=== PATIENT | male | born 1975 | race Asian ===

== ENCOUNTER 2018-06-24 08:00 | Outpatient (CLI) | payer BC | END 2018-06-24 08:01 | disposition home or self-care (01) | LOC: BICMRI 08:00 | PROVIDERS: ATTEND Internal Medicine Rheumatology | DX: M06.4 Inflammatory polyarthropathy (principal); M79.641 Pain in right hand ==

== ENCOUNTER 2020-03-05 20:32 | Emergency (ER) | payer BC, OTHER ==
[2020-03-05 21:16] LABS: #Basophils 0.1 thou/uL (0.0-0.2); #Eosinphils 0.3 thou/uL (0.0-0.7); #Lymphocytes 3.4 thou/uL (1.20-3.40); #Monocytes 0.6 thou/uL (0.11-0.59); #Neutrophils 2.9 thou/uL (1.40-6.50); %Basophils 1.4 % (0.0-1.0); %Eosinophils 4.4 % (0.0-10.0); %Lymphocytes 47.1 % (21.0-51.0); %Monocytes 7.6 % (0.0-10.0); %Neutrophils 39.6 % (42.0-75.0); Mean Corpuscular HGB CONC 34.1 g/dL (32.0-36.0); Mean Corpuscular Hemoglobin 28.9 pg (27.0-31.0); Mean Corpuscular Volume 84.9 fL (78.0-98.0); Mean Platelet Volume 8.5 fL (7.4-10.4); Platelet Count 260 thou/uL (130-400); RBC Distribution Width 12.6 % (11.5-14.5); Red Blood Cell (RBC) Count 5.53 mill/uL (4.70-6.10); White Blood Cell (WBC) Count 7.2 thou/uL (4.8-10.8)
--- NOTE | 2020-03-05 21:20 | RAD ---
XR Chest 1 View Portable HISTORY: Dyspnea COMPARISON: 02/21/2020 FINDINGS: The heart size is normal. The lungs are well expanded without focal areas of consolidation, pneumothorax or pleural effusions. IMPRESSION: No radiographic evidence of acute cardiopulmonary process.
[2020-03-05] MEDS ORDERED: Ketorolac Tromethamine 30 MG/ML VIAL ONE (21:34)
[2020-03-05] MEDS ORDERED: Metoclopramide HCl 10 MG/2 ML VIAL ONE (21:34)
[2020-03-05] MEDS ORDERED: Dexamethasone 10 MG/ML VIAL ONE (21:34)
[2020-03-05 21:46] LABS: ALT (SGPT) 32 U/L (8-55); AST (SGOT) 21 U/L (5-34); Albumin 4.5 g/dL (3.5-5.0); Alkaline Phosphatase 74 U/L (40-110); Anion Gap 15 mmol/L (10-20); BUN (Urea Nitrogen) 11 mg/dL (8.9-20.6); Bilirubin, Total 0.4 mg/dL (0.2-1.2); CK (CPK) 120 U/L (30-200); Calc. Creatinine Clearance 0 mL/min (70-130); Calcium 9.4 mg/dL (7.8-10.44); Carbon Dioxide 20 mmol/L (22-29); Chloride 109 mmol/L (98-107); Estimated GFR-MDRD Greater than 90; Globulin 3.2 g/dL (2.4-3.5); Glucose 102 mg/dL (70-105); Lipase 96 U/L (8-78); Potassium 3.9 mmol/L (3.5-5.1); Protein, Total 7.7 g/dL (6.0-8.3); Sodium 140 mmol/L (136-145)
--- NOTE | 2020-03-05 21:56 | CT ---
CT BRAIN WITHOUT CONTRAST: HISTORY: Headache FINDINGS: No evidence of acute infarct, hemorrhage, midline shift or abnormal extra-axial fluid collections is seen. The ventricular size is appropriate and the basilar cisterns are patent. The bony calvarium is intact. The mastoid air cells are well aerated. There is mucosal disease in the paranasal sinuses. IMPRESSION: No CT evidence of acute intracranial process.
[2020-03-06 10:23] LABS: SARS-CoV-2 MS2 Positive; SARS-CoV-2 N Gene Negative; SARS-CoV-2 S Gene Negative; SARS-CoV-2 orf1ab Negative
== END 2020-03-05 22:28 | disposition home or self-care (01) ==
LOC: ERS 20:32
DX: R06.00 Dyspnea, unspecified (principal); Z20.828 Contact with and (suspected) exposure to other viral communicable diseases; I10 Essential (primary) hypertension; F90.9 Attention-deficit hyperactivity disorder, unspecified type; Z79.899 Other long term (current) drug therapy
CPT/HCPCS: 70450; 71045; 80053; 82550; 83690; 83880; 84484; 85025; 85379; 87635; 93005; 96361; 96374; 96375; J1100; J1885; J2765; U0003

== ENCOUNTER 2020-03-08 21:11 | Inpatient (IN) | payer BC, OTHER ==
[~2020-03-08 21:11] MED LIST: Iopamidol-370 76% 500 ML 1 ML ONE
[2020-03-08] MEDS ORDERED: Lorazepam 2 MG/ML VIAL ONE (22:14)
[2020-03-08] MEDS ORDERED: cefTRIAXone\\ROCEPHIN 1 GM VIAL ONE (22:17)
[2020-03-08] MEDS ORDERED: Azithromycin 500 MG VIAL ONE (22:17)
[2020-03-08 22:19] LABS: #Basophils 0.1 thou/uL (0.0-0.2); #Eosinphils 0.1 thou/uL (0.0-0.7); #Lymphocytes 2.4 thou/uL (1.20-3.40); #Monocytes 1.1 thou/uL (0.11-0.59); #Neutrophils 8.4 thou/uL (1.40-6.50); %Basophils 0.4 % (0.0-1.0); %Eosinophils 0.5 % (0.0-10.0); %Lymphocytes 20.3 % (21.0-51.0); %Monocytes 9.1 % (0.0-10.0); %Neutrophils 69.6 % (42.0-75.0); Hemoglobin 15.1 g/dL (14.0-18.0); Mean Corpuscular HGB CONC 32.1 g/dL (32.0-36.0); Mean Corpuscular Hemoglobin 27.3 pg (27.0-31.0); Mean Platelet Volume 8.5 fL (7.4-10.4); Platelet Count 276 thou/uL (130-400); RBC Distribution Width 12.8 % (11.5-14.5); Red Blood Cell (RBC) Count 5.54 mill/uL (4.70-6.10)
[2020-03-08 22:41] LABS: ALT (SGPT) 27 U/L (8-55); AST (SGOT) 13 U/L (5-34); Albumin 4.5 g/dL (3.5-5.0); Alkaline Phosphatase 54 U/L (40-110); Anion Gap 13 mmol/L (10-20); BUN (Urea Nitrogen) 17 mg/dL (8.9-20.6); Bilirubin, Total 0.5 mg/dL (0.2-1.2); CK (CPK) 85 U/L (30-200); Calc. Creatinine Clearance 0 mL/min (70-130); Carbon Dioxide 24 mmol/L (22-29); Chloride 106 mmol/L (98-107); Estimated GFR-MDRD Greater than 90; Glucose 139 mg/dL (70-105); Potassium 3.8 mmol/L (3.5-5.1); Protein, Total 7.5 g/dL (6.0-8.3); Sodium 139 mmol/L (136-145)
[2020-03-08] MEDS ORDERED: Aspirin 325 MG TAB ONE (23:18)
[2020-03-08] MEDS ORDERED: Nitroglycerin 2% Ointment 1 INCH/1 GM Packet ONE (23:18)
[2020-03-08 23:29] LABS: CKMB 1.1 ng/mL (0-6.6)
[2020-03-08 23:29] LABS: Amphetamine Not Detected (NotDetected); Barbiturates Screen Not Detected (NotDetected); Benzodiazepine Screen Not Detected (NotDetected); Cocaine Metabolite Screen Not Detected (NotDetected); Medtox Control Line Valid? VALID (VALID); Medtox Reader # READER 4; Methadone Not Detected (NotDetected); Methamphetamine Not Detected (NotDetected); Opiate Screen Not Detected (NotDetected); Oxycodone Screen Not Detected (NotDetected); Phencyclidine (PCP) Not Detected (NotDetected); THC/Cannabinoid Screen Not Detected (NotDetected); Tricyclic Screen Not Detected (NotDetected)
[2020-03-09] MEDS ORDERED: Acetaminophen 650 MG Suppository PR PRN (00:18)
[2020-03-09] MEDS ORDERED: Nitroglycerin 0.4 MG TAB (25 Tab Bottle) PO PRN (00:21)
--- NOTE | 2020-03-09 00:42 | PDOC.HHP ---
Hospitalist HPI - History of Present Illness Chest pain and SOB History of Present Illness: Patient presents complaining of progressively worsening shortness of breath for the last several days and more frequent episodes of "chest, neck and jaw spasming". Patient states the shortness of breath occurs with any exertion, including walking to the bathroom and has gotten worse. He reports having a coughing fit after the spasms he experience which initially occured 1-2 times a day and now occur 3-4 times a day. He describes feeling as if his chest muscles, neck muscles and jaw get tight and start to spasm. In order for him to be able to breathe he has to force himself to take a deep breath and hold it. Otherwise he feels the spasm recur if he breathes normally. After these episodes he experiences coughing fits that are dry. Denies any hemoptysis. This all began when he became unwell with a productive cough at the end of February. He was seen at an urgent care center and tested negative for COVID. His symptoms persisted prompting him to return to the ED 4 days ago and again had COVID testing which was negative. Known history of HTN but no known history of COPD or Asthma. No history of heart failure. Has never had an echo done. At present he feels well and is without any pain. ED Course: EKG done in NSR< HR 77. No ST changes or T wave abnormalities. Chest X ray unremarkable. Initial trop 0.113, CK 85. WCC 12, Hgb 15.1, Hct 47.1, Platelets 276. CMP unremarkable. He was started on IV antibiotics (Azithromycin) and Rocephin. Also given aspirin 325 mg PO. 1L of NS given and 1 inch nitro given as well. Hospitalist ROS - Review of Systems Constitutional: denies: fever, chills, sweats, weakness, malaise, other Eyes: denies: pain, vision change, conjunctivae inflammation, eyelid inflammation, redness, other ENT: denies: ear pain, ear discharge, nose pain, nose discharge, nose congestion , mouth pain, mouth swelling, throat pain, throat swelling, other Respiratory: reports: cough (clear sputum), SOB with excertion Cardiovascular: reports: chest pain (radiating to neck and jaw as well as left arm, described as spasms/tightness). denies: palpitations, orthopnea, paroxysmal noc. dyspnea, edema, light headedness, other Gastrointestinal: denies: nausea, vomiting, abdominal pain, diarrhea, constipation, melena, hematochezia, other Genitourinary: denies: dysuria, frequency, incontinence, hematuria, retention, other Musculoskeletal: reports: neck pain (spasms to anterior neck). denies: shoulder pain, arm pain, back pain, hand pain, leg pain, foot pain, other Skin: denies: rash, lesions, bryant, bruising, other Neurological: denies: weakness, numbness, incoordination, change in speech, confusion, seizures, other - Medication Medications: losartan-hydrochlorothiazide TABLET : Strength - 100 mg-25 mg : ORAL Patient Dose: 1 tab(s) Oral once a day. predniSONE 20 mg : Strength - TABLET : ORAL Patient Dose: 3 tab(s) Oral once a day. Hospitalist History - Past Medical History Source: patient Cardiac: reports: HTN Psych: reports: Other (ADHD) - Past Surgical History Past Surgical History: reports: no pertinent history - Family History Family History: reports: no pertinent history - Social History Smoking Status: Never smoker Alcohol: reports: Occassional Drugs: reports: none Living Situation: With Family Activity level: independent ambulation - Exam General Appearance: NAD Eye: PERRL, anicteric sclera ENT: normocephalic atraumatic, no oropharyngeal lesions, moist mucosa Neck: supple, no lymphadenopathy Heart: RRR, no murmur, no gallops, normal peripheral pulses Respiratory: CTAB, no wheezes, no rales, no ronchi, normal chest expansion, no tachypnea Gastrointestinal: soft, non-tender, non-distended, normal bowel sounds, no guarding, no rigidity Extremities: no cyanosis, no clubbing, no edema Skin: normal turgor, no rashes Neurological: cranial nerve grossly intact Musculoskeletal: normal tone, normal strength, no muscle wasting Psychiatric: normal affect, normal behavior, A&O x 3 Hospitalist Results - Labs Result Diagrams: 03/08/20 22:08 03/08/20 22:08 Lab results: WBC 12.0 thou/uL (4.8-10.8) H 03/08/20 22:08 Hgb 15.1 g/dL (14.0-18.0) 03/08/20 22:08 Hct 47.1 % (42.0-52.0) 03/08/20 22:08 MCV 85.0 fL (78.0-98.0) 03/08/20 22:08 Plt Count 276 thou/uL (130-400) 03/08/20 22:08 Neutrophils % 69.6 % (42.0-75.0) 03/08/20 22:08 Sodium 139 mmol/L (136-145) 03/08/20 22:08 Potassium 3.8 mmol/L (3.5-5.1) 03/08/20 22:08 Chloride 106 mmol/L (98-107) 03/08/20 22:08 Carbon Dioxide 24 mmol/L (22-29) 03/08/20 22:08 BUN 17 mg/dL (8.9-20.6) 03/08/20 22:08 Creatinine 0.87 mg/dL (0.7-1.3) 03/08/20 22:08 Glucose 139 mg/dL (70-105) H 03/08/20 22:08 Calcium 9.0 mg/dL (7.8-10.44) 03/08/20 22:08 Total Bilirubin 0.5 mg/dL (0.2-1.2) 03/08/20 22:08 AST 13 U/L (5-34) 03/08/20 22:08 ALT 27 U/L (8-55) 03/08/20 22:08 Alkaline Phosphatase 54 U/L (40-110) 03/08/20 22:08 Creatine Kinase 85 U/L (30-200) 03/08/20 22:08 CK-MB (CK-2) 1.1 ng/mL (0-6.6) 03/08/20 22:32 Troponin I 0.113 ng/mL (< 0.028) H 03/08/20 22:32 B-Natriuretic Peptide 28.1 pg/mL (0-100) 03/08/20 22:08 Serum Total Protein 7.5 g/dL (6.0-8.3) 03/08/20 22:08 Albumin 4.5 g/dL (3.5-5.0) 03/08/20 22:08 - Radiology Interpretation Chest x-ray Status: report reviewed by me CT scan - chest Status: pending Hospitalist H&P A/P - Problem (1) Chest tightness Code(s): R07.89 - OTHER CHEST PAIN Status: Acute (2) Shortness of breath on exertion Code(s): R06.02 - SHORTNESS OF BREATH Status: Acute (3) Cough Code(s): R05 - COUGH Status: Acute (4) Troponin level elevated Code(s): R79.89 - OTHER SPECIFIED ABNORMAL FINDINGS OF BLOOD CHEMISTRY Status : Acute (5) Hypertension Code(s): I10 - ESSENTIAL (PRIMARY) HYPERTENSION Status: Chronic Qualifiers: Hypertension type: essential hypertension Qualified Code(s): I10 - Essential (primary) hypertension (6) ADHD Status: Acute - Plan Plan: Cardiac monitoring Continue to trend troponin Echo ordered and Cardiology consult as per discussion with Dr. Rock. UDS pending. CTA ordered. No evidence of PE, per ED physician. Final report pending. NPO at midnight, pending cardiology assessment. Monitor BP. Resume home medications once verified. CODE STATUS FULL [employer]ROGATE DECISION MAKER: His , Zack Gomez.
[2020-03-09 01:17] VITALS: BMI 30.1
[2020-03-09] MEDS: Acetaminophen 325 MG TAB PO PRN (01:31)
[2020-03-09 02:02] LABS: Troponin I 0.149 ng/mL (< 0.028)
[2020-03-09 04:49] LABS: #Basophils 0.1 thou/uL (0.0-0.2); #Lymphocytes 3.4 thou/uL (1.20-3.40); #Monocytes 0.7 thou/uL (0.11-0.59); #Neutrophils 5.8 thou/uL (1.40-6.50); %Eosinophils 0.4 % (0.0-10.0); %Neutrophils 57.6 % (42.0-75.0); Hemoglobin 12.7 g/dL (14.0-18.0); Mean Corpuscular HGB CONC 32.3 g/dL (32.0-36.0); Mean Corpuscular Hemoglobin 27.9 pg (27.0-31.0); Mean Corpuscular Volume 86.3 fL (78.0-98.0); Mean Platelet Volume 8.7 fL (7.4-10.4); Platelet Count 235 thou/uL (130-400); RBC Distribution Width 12.9 % (11.5-14.5); Red Blood Cell (RBC) Count 4.57 mill/uL (4.70-6.10)
[2020-03-09 05:15] LABS: Anion Gap 10 mmol/L (10-20); BUN (Urea Nitrogen) 14 mg/dL (8.9-20.6); Calc. Creatinine Clearance 148 mL/min (70-130); Carbon Dioxide 23 mmol/L (22-29); Chloride 108 mmol/L (98-107); Estimated GFR-MDRD Greater than 90; Glucose 90 mg/dL (70-105); Potassium 3.8 mmol/L (3.5-5.1); Sodium 137 mmol/L (136-145)
[2020-03-09 05:34] LABS: CKMB 1.2 ng/mL (0-6.6)
--- NOTE | 2020-03-09 07:19 | RAD ---
CHEST 1 VIEW: Date: 03/08/2020 HISTORY: Dyspnea. COMPARISON: Radiograph dated 03/05/2020. FINDINGS: Lungs are clear. No pneumothorax or effusion. Cardiac silhouette and mediastinal contours are within normal limits. No acute osseous abnormality. IMPRESSION: No acute intrathoracic abnormality. POS: HOME
--- NOTE | 2020-03-09 07:25 | CT ---
CT ANGIOGRAM CHEST WITH CONTRAST: Date: 03/08/2020 HISTORY: Shortness of breath. COMPARISON: Radiograph dated 03/05/2020 for reference. FINDINGS: CT angiogram chest performed after the intravenous administration of contrast. 3D rendering provided. No proximal segmental pulmonary arterial filling defect. No pericardial effusion. Limited evaluation of the upper abdomen is unremarkable. No mediastinal adenopathy. No confluent air space consolidation. No pneumothorax or effusion. No suspicious pulmonary nodule. Th e sternum and manubrium are intact. Thoracic spine intact. Celiac trunk intact. IMPRESSION: 1. No pulmonary embolism. 2. No evidence for pneumonia. 3. No acute inflammatory process within the chest. POS: HOME
[2020-03-09 08:06] LABS: Cardiac Risk 3.8 (Less than 4.5)
[2020-03-09] MEDS ORDERED: Aspirin 325 mg Enteric Coated Tablet PO SCH (09:00)
[2020-03-09] MEDS ORDERED: Famotidine/PF 20 mg/2ml Vial SLOW IVP SCH (09:00)
[2020-03-09] MEDS ORDERED: Losartan 25 MG TAB PO SCH (09:00)
[2020-03-09 13:45] LABS: CKMB 1.1 ng/mL (0-6.6)
[2020-03-09] MEDS ORDERED: Albuterol Sulfate 2.5 mg/3 ml Neb NEB PRN (15:41)
--- NOTE | 2020-03-09 16:54 | PDOC.HOSPP ---
- Subjective Encounter Date: 03/09/20 Encounter Time: 15:00 Subjective: Patient seen and examined for [facility]. No CP. SOB on mild to mod exertion. No new complaints. No overnight events - Objective Vital Signs & Weight: Vital Signs (12 hours) Temp Pulse Resp BP Pulse Ox 03/09/20 15:21 98.1 F 70 16 142/86 H 99 03/09/20 11:24 97.8 F 70 18 147/88 H 99 03/09/20 07:35 99 03/09/20 07:07 97.7 F 68 16 123/73 99 Weight Weight 186 lb 12.8 oz I&O: 03/08/20 03/09/20 03/10/20 06:59 06:59 06:59 Intake Total 30 Balance 30 Result Diagrams: 03/09/20 04:35 03/09/20 04:35 Additional Labs: Laboratory Tests 03/09/20 07:35 Troponin I 0.291 H EKG Reviewed by me: Yes (Tele SR) Hospitalist ROS - Review of Systems Cardiovascular: denies: chest pain, palpitations, orthopnea, paroxysmal noc. dyspnea, edema, light headedness, other Gastrointestinal: denies: nausea, vomiting, abdominal pain, diarrhea, constipation, melena, hematochezia, other - Medication Medications: Active Medications Generic Name Dose Route Start Last Admin Trade Name Jose Davidq PRN Reason Stop Dose Admin Acetaminophen 650 mg 03/09/20 00:18 03/09/20 01:31 Tylenol PO 650 mg Q4H PRN Administration Headache/Fever/Mild Pain (1-3) Sodium Chloride 10 ml 03/09/20 00:18 03/09/20 01:31 Flush - Normal Saline IVF 10 ml Q12HR PRN Administration Saline Flush - Exam General Appearance: NAD Heart: RRR, no rubs Respiratory: CTAB, no rales, no ronchi Gastrointestinal: soft, non-tender, non-distended, normal bowel sounds Extremities: no cyanosis Hosp A/P - Plan DVT proph w/SCDs SOB/Unstable angina HTN Obesity BMI 30.1 Mod MR PLAN: Await Cardiology input COVID negative CTA - no PE Add ASA/Statins Check fasting lipid profile Restart Losartan Cont other meds as above
[2020-03-09] MEDS ORDERED: Famotidine 20 MG TAB PO SCH (21:00)
[2020-03-09] MEDS: Atorvastatin Calcium 40 MG TAB PO SCH (21:43)
--- NOTE | 2020-03-09 22:26 | CON ---
DATE OF CONSULTATION: HISTORY OF PRESENT ILLNESS: This is a 44-year-old male who for the last 1-2 weeks has had problems with cough and chest pain. He states he will feel mucus in his throat, which will make him cough and then at times with coughing, he will have chest discomfort. He had one episode that was so bad, that it lasted approximately 30 minutes with aching in his chest. He has been evaluated in outpatient Urgent Care Clinic and then the ER and tested negative for COVID twice. At the present time , he has no complaints. PAST MEDICAL HISTORY: 1. Hypertension. 2. Adult attention deficit disorder. 3. No history of diabetes or hypercholesterolemia. MEDICATIONS: Losartan 100 mg daily (he has been on this for several years without any dosage change). ALLERGIES: NONE. OPERATIONS: None. SOCIAL HISTORY: He does not smoke. Rarely drinks. FAMILY HISTORY: Remarkable for father who has had 2 previous bypass surgeries. REVIEW OF SYSTEMS: Otherwise unremarkable. PHYSICAL EXAMINATION: VITAL SIGNS: 147/88, pulse of 70. HEENT: PERRL. NECK: Supple. CHEST: Clear. CARDIAC: S1 and S2 normal without any S3, S4, or murmurs. ABDOMEN: Normal bowel sounds without tenderness or organomegaly. EXTREMITIES: Revealed no clubbing, cyanosis, or edema. NEUROLOGIC: Grossly intact. SKIN: Warm and dry. MUSCULOSKELETAL: Examination revealed palpable chest wall tenderness that seems to reproduce a lot of his pain. LABORATORY DATA: EKG normal sinus rhythm. Hemoglobin 12.7, hematocrit 39.5, white count 54859, platelets 235,000. Sodium 137, potassium 3.8, chloride 108, carbon dioxide 23, BUN 14, creatinine 0.78 troponin I is up to 0.291. Urine drug screen is unremarkable. IMAGING: Chest x-ray revealed no acute abnormality. CT angiogram of the chest revealed no evidence for pulmonary emboli. There is no evidence of pneumonia or any acute inflammatory process of the chest. No mention is made of coronary artery calcifications. IMPRESSION: 1. Spt-SB-[id number] myocardial infarction, probably type 2. 2. Chest wall pain from coughing. 3. Cough of uncertain etiology. He does not appear to have pneumonia and has no history of asthma. In rare instances, angiotensin-receptor roman drugs may cause people to have cough and if no other etiology is found, this may need to be considered. 4. Hypertension. 5. Positive family history. 6. LDL of 68 in March 2019. RECOMMENDATIONS: 1. His current chest pain appears to be musculoskeletal in nature, probably related to his cough. Echocardiogram revealed normal left ventricular function with moderate mitral regurgitation. 2. His CT angiogram did not reveal any coronary artery calcifications, which makes the likelihood of coronary artery disease extremely low. 3. Another fasting lipid profile will be obtained with his family history. 4. He will undergo Lexiscan Cardiolite testing to further evaluate. Job ID: [id number] [facility]
[2020-03-09 22:48] LABS: CKMB 0.7 ng/mL (0-6.6)
[2020-03-10 02:04] LABS: CKMB 0.7 ng/mL (0-6.6)
[2020-03-10 05:23] LABS: CKMB 0.6 ng/mL (0-6.6)
[2020-03-10 08:21] LABS: CKMB 0.6 ng/mL (0-6.6)
[2020-03-10] MEDS ORDERED: Regadenoson 0.4 MG/5 ML SYRINGE ONE (08:48)
[2020-03-10] MEDS ORDERED: Iopamidol 370 76% 50 ML VIAL FS ONE (08:51)
[2020-03-10] MEDS ORDERED: Iopamidol 370 76% 100 ML VIAL ONE (08:51)
[2020-03-10] MEDS ORDERED: Amlodipine 5 MG TAB PO SCH (09:00)
[2020-03-10] MEDS: Aspirin 81 mg Enteric Coated Tablet PO SCH (11:28)
--- NOTE | 2020-03-10 12:01 | NM ---
EXAM: NM Cardiac Stress W EF WF PROVIDED CLINICAL HISTORY: Chest pain and elevated troponins COMPARISON: None FINDINGS: There is diminished uptake of radiotracer seen within the inferior and inferolateral left ventricular wall. The area of diminished uptake is slightly greater laterally on the stress acquisition compared to resting acquisition. Diminished thickening is present in the inferior left ventricular wa ll on gated images. Normal ventricular wall motion is present. Calculated left ventricular ejection fraction is 54%. IMPRESSION: 1. Abnormal myocardial perfusion study with findings suggestive of scarring in the inferior and infer olateral left ventricular wall with question of minimal alex-infarct ischemia. No large reversible defect is seen. 2. LVEF of 54%.
[2020-03-10] MEDS ORDERED: Sodium Chloride 0.9% 1,000 ML IV SCH ×2 (12:45→15:24)
[2020-03-10] MEDS ORDERED: Communication Order-Pharmacy FS SCH (12:45)
[2020-03-10] MEDS ORDERED: Heparin 10,000 UNITS/1 ML VIAL ONE (12:57)
[2020-03-10] MEDS ORDERED: Midazolam HCl 2 mg/2 ml Vial ONE (13:58)
[2020-03-10] MEDS ORDERED: Fentanyl 100 MCG/2 ML VIAL ONE (13:58)
[2020-03-10] MEDS ORDERED: Nitroglycerin 100MG/250ML BOT 250 ML ONE (14:21)
[2020-03-10] MEDS ORDERED: TICAGRELOR 90 MG TABLET ONE (14:31)
[2020-03-10] MEDS ORDERED: Bivalirudin 250 MG VIAL ONE (14:31)
[2020-03-10] MEDS ORDERED: Morphine 2 MG/ML SYRINGE SLOW IVP PRN (15:22)
--- NOTE | 2020-03-10 16:46 | PDOC.HOSPP ---
- Subjective Encounter Date: 03/10/20 Encounter Time: 16:00 Subjective: Patient seen and examined for [place]. s/p Cx stent. No CP. No new complaints. No overnight events - Objective Vital Signs & Weight: Vital Signs (12 hours) Temp Pulse Resp BP BP BP Pulse Ox 03/10/20 11:33 98.3 F 66 18 158/87 H 98 03/10/20 11:28 66 158/87 H 03/10/20 07:41 98.4 F 71 16 135/73 99 Weight Weight 186 lb 12.8 oz I&O: 03/09/20 03/10/20 03/11/20 06:59 06:59 06:59 Intake Total 30 Balance 30 Result Diagrams: 03/09/20 04:35 03/09/20 04:35 EKG Reviewed by me: Yes (Tele SR) Hospitalist ROS - Review of Systems Respiratory: denies: cough, dry, shortness of breath, hemoptysis, SOB with excertion, pleuritic pain, sputum, wheezing, other Cardiovascular: denies: chest pain, palpitations, orthopnea, paroxysmal noc. dyspnea, edema, light headedness, other - Medication Medications: Active Medications Generic Name Dose Route Start Last Admin Trade Name Freq PRN Reason Stop Dose Admin Acetaminophen 650 mg 03/09/20 00:18 03/09/20 01:31 Tylenol PO 650 mg Q4H PRN Administration Headache/Fever/Mild Pain (1-3) Aspirin 81 mg 03/10/20 09:00 03/10/20 11:28 Ecotrin PO 81 mg DAILY FITZ Administration Atorvastatin Calcium 40 mg 03/09/20 21:00 03/09/20 21:43 Lipitor PO 40 mg HS FITZ Administration Pantoprazole Sodium 40 mg 03/09/20 21:00 03/09/20 21:43 Protonix PO 40 mg HS FITZ Administration Sodium Chloride 10 ml 03/09/20 00:18 03/09/20 21:43 Flush - Normal Saline IVF 10 ml Q12HR PRN Administration Saline Flush - Exam General Appearance: NAD Neck: supple, no JVD Heart: RRR, no gallops, no rubs Respiratory: no wheezes, no rales, no ronchi Gastrointestinal: soft, non-tender Hosp A/P - Plan DVT proph w/SCDs SOB/Unstable angina Abn Stress test CAD s/p L Cx stent HTN Obesity BMI 30.1 Mod MR Family h/o heart disease PLAN: Cont ASA/Statins Started on Brilinta/Metoprolol Cont other meds as above DC in AM if stable Cont other meds
[2020-03-10] MEDS: TICAGRELOR 90 MG TABLET PO SCH (21:03)
[2020-03-10] MEDS: Atorvastatin Calcium 40 MG TAB PO SCH (21:04)
[2020-03-10] MEDS: Metoprolol Tartrate 25 MG TAB PO SCH (21:04)
[2020-03-10] MEDS: Acetaminophen 325 MG TAB PO PRN (21:04)
[2020-03-11 04:33] LABS: #Eosinphils 0.2 thou/uL (0.0-0.7); #Lymphocytes 2.3 thou/uL (1.20-3.40); #Monocytes 0.5 thou/uL (0.11-0.59); #Neutrophils 5.4 thou/uL (1.40-6.50); %Basophils 0.4 % (0.0-1.0); %Eosinophils 2.2 % (0.0-10.0); %Lymphocytes 27.8 % (21.0-51.0); %Monocytes 5.6 % (0.0-10.0); %Neutrophils 64.1 % (42.0-75.0); Hemoglobin 14.7 g/dL (14.0-18.0); Mean Corpuscular HGB CONC 33.1 g/dL (32.0-36.0); Mean Corpuscular Hemoglobin 28.1 pg (27.0-31.0); Mean Platelet Volume 8.5 fL (7.4-10.4); Platelet Count 238 thou/uL (130-400); RBC Distribution Width 12.6 % (11.5-14.5); Red Blood Cell (RBC) Count 5.22 mill/uL (4.70-6.10); White Blood Cell (WBC) Count 8.4 thou/uL (4.8-10.8)
[2020-03-11 04:53] LABS: ALT (SGPT) 25 U/L (8-55); AST (SGOT) 11 U/L (5-34); Albumin 3.8 g/dL (3.5-5.0); Alkaline Phosphatase 47 U/L (40-110); Anion Gap 10 mmol/L (10-20); BUN (Urea Nitrogen) 11 mg/dL (8.9-20.6); Bilirubin, Total 1.1 mg/dL (0.2-1.2); Calc. Creatinine Clearance 136 mL/min (70-130); Calcium 8.3 mg/dL (7.8-10.44); Carbon Dioxide 21 mmol/L (22-29); Chloride 109 mmol/L (98-107); Estimated GFR-MDRD Greater than 90; Globulin 2.6 g/dL (2.4-3.5); Glucose 147 mg/dL (70-105); Potassium 3.6 mmol/L (3.5-5.1); Protein, Total 6.4 g/dL (6.0-8.3); Sodium 136 mmol/L (136-145)
--- NOTE | 2020-03-11 07:57 | PRG ---
DATE OF SERVICE: 03/11/2020 SUBJECTIVE: Mr. Gomez is doing well. He has no chest pain or pressure. Feels well. OBJECTIVE: VITAL SIGNS: His blood pressure is 129/77, pulse 70. LUNGS: Clear. CARDIAC: Normal S1, normal S2. ABDOMEN: Soft, nontender. ASSESSMENT: 1. Coronary artery disease with small vessels. 2. Status post successful stent implantation. 3. Hypercholesterolemia. PLAN: 1. He will go home on;. a. Zetia 10 mg a day. b. Metoprolol 25 mg twice a day. c. Ticagrelor 90 mg twice a day. d. Aspirin 81 mg a day. e. Zetia 10 mg a day. f. Atorvastatin 40 mg a day. g. Amlodipine 5 mg a day. 2. He will follow up with Dr. Conn as an outpatient. Job ID: [id number]
[2020-03-11] MEDS: TICAGRELOR 90 MG TABLET PO SCH (08:46)
[2020-03-11] MEDS: Aspirin 81 mg Enteric Coated Tablet PO SCH (08:46)
[2020-03-11] MEDS: Metoprolol Tartrate 25 MG TAB PO SCH (08:46)
[2020-03-11 08:49] VITALS: BP 134/84; TEMP 97.7
[2020-03-11] MEDS ORDERED: Ezetimibe 10 MG TAB PO SCH (09:00)
--- NOTE | 2020-03-11 09:40 | DIS ---
DATE OF ADMISSION: 03/09/2020 DATE OF DISCHARGE: 03/11/2020 DISCHARGE DISPOSITION: Home. FOLLOWUP: 1. Follow up with Dr. Cameron Beavers in 1 week. 2. Follow up with Dr. Richardson Conn in 2 to 3 weeks. ALLERGIES: NO KNOWN DRUG ALLERGIES. PHYSICAL EXAMINATION: The patient was seen on the day of discharge. VITAL SIGNS: Showed temperature 97.7, with pulse rate of 86, respirations of 16, blood pressure of 134/84, O2 saturation 98% on room air. DISCHARGE MEDICATIONS: 1. Aspirin 81 mg daily. 2. Brilinta 90 mg b.i.d. 3. Lopressor 25 mg b.i.d. 4. Zetia 10 mg daily. 5. Lipitor 40 mg at bedtime. 6. Sublingual nitroglycerin as needed. BRIEF HOSPITAL COURSE: The patient is a 44-year-old male with hypertension, presented to the emergency room with shortness of breath along with chest tightness. His workup was consistent with unstable angina. His maximum troponin this admission was 0.210 with normal CK-MB. The patient was evaluated by Cardiology, Dr. Richardson Conn. He underwent a stress testing that showed scarring in the inferior and the inferolateral left ventricular wall with probable alex-infarct ischemia. Ejection fraction was 54%. Echocardiogram showed ejection fraction of 50% to 55% with moderate mitral regurgitation, mild tricuspid regurgitation. The patient underwent cardiac catheterization yesterday with drug-eluting stent placement to the mid circumflex and proximal circumflex. He was found to have 30% lesion in the mid LAD, 70% lesion in the first diagonal, 60% lesion in the distal LAD. RCA was a very small vessel with 80% stenosis in the first marginal and 99% lesion in the distal RCA. The patient has been cleared by Cardiology for discharge. SIGNIFICANT LABORATORY DATA: Fasting lipid showed triglyceride of 90 with total cholesterol of 184, LDL of 117, HDL of 49. FINAL DIAGNOSES: 1. Unstable angina. 2. Shortness of breath secondary to above. 3. Abnormal stress test. 4. Three vessel coronary artery disease status post left circumflex stent placement. 5. Hypertension. 6. Moderate mitral regurgitation. 7. Obesity with a body mass index of 30.1. 8. Dyslipidemia. 9. Family history of heart disease. The patient understands the above plan of care. Job ID: [id number]
--- NOTE | 2020-03-12 16:20 | EKG ---
Test Reason : Blood Pressure : / mmHG Vent. Rate : 080 BPM Atrial Rate : 080 BPM P-R Int : 132 ms QRS Dur : 084 ms QT Int : 376 ms P-R-T Axes : 038 027 011 degrees QTc Int : 433 ms Normal sinus rhythm Normal ECG When compared with ECG of 08-MAR-2020 22:23, (Unconfirmed) Nonspecific T wave abnormality, worse in Inferior leads Confirmed by SARAH HOLLINS (2) on 03/12/2020 4:19:57 PM Referred By: QUIQUE Confirmed By:SARAH HOLLINS
--- NOTE | 2020-03-13 03:57 | PQF ---
STACY SCHMITT MALIK MD [id number] [facility] [place]-204 [id number] CLINICAL DOCUMENTATION CLARIFICATION FORM: POST DISCHARGE Addendum to original discharge summary date: ____ Late entry note date: __ DATE:03/13/2020 ATTN: Jam Knapp Please exercise your independent, professional judgment in responding to the clarification form. Clinical indicators are provided on the bottom of this form for your review Please check appropriate box(s): [ ] Acute Coronary Syndrome (ACS) without Acute AK meaning Unstable Angina [ ] NSTEMI (AK type I) [ ] NSTEMI type II due to: (Please specify condition) [ ] Other condition: [ x ] Unable to determine In addition, please specify: Present on Admission (POA): [ ] Yes [ ] No [ ] Unable to determine CLINICAL INDICATORS - SIGNS / SYMPTOMS / LABS Laboratory 03/08 Ck-MB 1.1, Troponin 0.113; 0.149; 0.210, BNP 28.1 Vital signs 168/100, Pulse 108, Resp 20, temp 98.2 EKG 03/08 Impression in NSR <HR 77. No ST changes or Twave abnormalities H&P p1 03/09 Dr Cruz complaining of progressively worsening SOB for last several days and more frequent episodes of chest, neck and jaw spasmi H&P p4 03/09 Dr Cruz Chest tightness, SOB on exertion, cough and Troponin level elevated Consult p2 03/10 Dr Conn Hmi-KL-xwemzlhbd myocardial infarction, probably type 2 Discharge summary p1 03/11 Dr Greene his workup consistent with unstable angina Discharge summary p2 03/11 Dr Greene Abnormal stress test RISKS: H&P p2 03/09 HTN PN p1 03/11 - Hypercholesterolemia Discharge summary p1 03/11 Mitral regurgitation with tricuspid regurgitation Discharge summary p2 03/11 CAD with unstable angina Discharge summary p2 03/11 Obesity BMI 30.1 Discharge summary p2 03/11 HLD Discharge summary p2 03/11 Family hx of heart disease TREATMENTS: Cardiac Catheterization with GARY placement 03/10 Dr Calix JAN 05 Nitroglycerin 1inch Ointment JAN 05 IV Morphine 2mg JAN 05 Aspirin 325 mg oral JAN 05 Cozaar 100 mg oral JAN 05 IV nitroglycerine 250 mg Cardiology consult 03/09 Richardson Bowie TTE 03/09 Stress test nuclear medicine 03/10 EKG 03/08 (This form is maintained as a part of the permanent medical record) 2014 [employer], [employer]. All Rights Reserved [email or web address]
== END 2020-03-11 09:31 | disposition home or self-care (01) | DRG 247 ==
LOC: ERS 21:11 → 2SE 03-09 00:53 → OBSVTOIN 03-09 00:53
PROVIDERS: ADMIT Internal Medicine; ATTEND Internal Medicine
PROC: 027035Z Dilation of Coronary Artery, One Artery with Two Drug-eluting Intraluminal Devices, Percutaneous Approach (ICD-10-PCS; principal; 2020-03-10)
PROC: 4A023N7 Measurement of Cardiac Sampling and Pressure, Left Heart, Percutaneous Approach (ICD-10-PCS; 2020-03-10)
PROC: B2111ZZ Fluoroscopy of Multiple Coronary Arteries using Low Osmolar Contrast (ICD-10-PCS; 2020-03-10)
PROC: B2151ZZ Fluoroscopy of Left Heart using Low Osmolar Contrast (ICD-10-PCS; 2020-03-10)
DX: I25.110 Atherosclerotic heart disease of native coronary artery with unstable angina pectoris (principal); R94.39 Abnormal result of other cardiovascular function study; I10 Essential (primary) hypertension; E66.9 Obesity, unspecified; E78.5 Hyperlipidemia, unspecified; I08.1 Rheumatic disorders of both mitral and tricuspid valves; F90.9 Attention-deficit hyperactivity disorder, unspecified type; E78.00 Pure hypercholesterolemia, unspecified; R05 Cough; Z68.30 Body mass index [BMI] 30.0-30.9, adult; Z82.49 Family history of ischemic heart disease and other diseases of the circulatory system; Z79.899 Other long term (current) drug therapy; Z79.52 Long term (current) use of systemic steroids
CPT/HCPCS: 36415; 71045; 71275; 78452; 80048; 80053; 80061; 80306; 82550; 82553; 83880; 84484; 85025; 85347; 87040; 92928; 93005; 93010; 93017; 93306; 93458; 93798; 94760; 96365; 96367; 96375; 99152; 99153; A9500; C1725; C1769; C1874; C1887; C9600; J0280; J0456; J0583; J0696; J1644; J2060; J2250; J2785; J3010; Q9967